=== PATIENT | male | born 1960 | race Caucasian/White ===

== ENCOUNTER 2020-04-03 14:01 | Emergency (ER) | payer MEDICARE, MEDICAID ==
[~2020-04-03] VITALS: Ht 188 cm; Wt 100.0 kg
[2020-04-03] MEDS ORDERED: NORCO, ANEXSIA 5/325MG TABLET (HYDROcodone/ACETAMINOPHEN) PO ONE (14:30)
[2020-04-03] MEDS ORDERED: NORC1TAB7 PO (15:02)
[2020-04-03 15:35] VITALS: BP 145/79
== END 2020-04-03 15:36 | disposition home or self-care (01) ==
LOC: M ED 14:01 → EDBD 14:01 → M ED 15:36
DX: M25.461 Effusion, right knee (principal); W19.XXXA Unspecified fall, initial encounter; X50.1XXA Overexertion from prolonged static or awkward postures, initial encounter; Y92.098 Other place in other non-institutional residence as the place of occurrence of the external cause; J44.9 Chronic obstructive pulmonary disease, unspecified; F17.210 Nicotine dependence, cigarettes, uncomplicated

== ENCOUNTER 2021-01-26 23:35 | Emergency (ER) | payer MEDICARE, MEDICAID ==
[~2021-01-26] VITALS: Ht 182.9 cm; Wt 104.5 kg
[~2021-01-26 23:35] MED LIST: NORC1TAB7 PO
[2021-01-26 23:41] VITALS: BP 146/92
--- NOTE | 2021-01-27 00:44 | REPVR ---
PROCEDURE INFORMATION: Exam: CT Head Without Contrast Exam date and time: 01/27/2021 12:00 AM Age: 60 years old Clinical indication: Injury or trauma; Fall; Concussion/head injury; Additional info: Fall, head laceration, ETOH TECHNIQUE: Imaging protocol: Computed tomography of the head without contrast. Radiation optimization: All CT scans at this facility use at least one of these dose optimization techniques: automated exposure control; mA and/or kV adjustment per patient size (includes targeted exams where dose is matched to clinical indication); or iterative reconstruction. COMPARISON: No relevant prior studies available. FINDINGS: Brain: Unremarkable. No hemorrhage or acute infarction. Unremarkable white matter. No midline shift or mass effect. Cerebral ventricles: No ventriculomegaly. Paranasal sinuses: Visualized sinuses are clear. Mastoid air cells: Mastoid air cells are clear. Bones/joints: Unremarkable. No acute fracture. Soft tissues: Soft tissue swelling in the left temporal scalp. No foreign bodies. IMPRESSION: No acute intracranial abnormality. Electronically signed by: Brandon Velazquez On 01/27/2021 00:44:06 AM
--- NOTE | 2021-01-27 00:52 | REPVR ---
PROCEDURE INFORMATION: Exam: CT Cervical Spine Without Contrast Exam date and time: 01/27/2021 12:00 AM Age: 60 years old Clinical indication: Neck pain; Additional info: Fall, head laceration, ETOH TECHNIQUE: Imaging protocol: Computed tomography images of the cervical spine without contrast. Radiation optimization: All CT scans at this facility use at least one of these dose optimization techniques: automated exposure control; mA and/or kV adjustment per patient size (includes targeted exams where dose is matched to clinical indication); or iterative reconstruction. COMPARISON: No relevant prior studies available. FINDINGS: Bones/joints: No acute fracture. Normal alignment. Discs/Spinal canal/Neural foramina: Advanced discogenic degenerative changes. Advanced facet DJD with multilevel neural foraminal stenoses. No spinal stenosis. Lungs: Lung apices are normal. Pleural spaces: Small right pleural effusion. Soft tissues: Unremarkable. IMPRESSION: 1. No acute fracture. Normal alignment. 2. Advanced degenerative spondylosis. 3. Small right pleural effusion. Electronically signed by: Brandon Velazquez On 01/27/2021 00:52:11 AM
== END 2021-01-27 01:15 | disposition left against medical advice (07) ==
LOC: M ED 23:35
DX: Z53.21 Procedure and treatment not carried out due to patient leaving prior to being seen by health care provider (principal)

== ENCOUNTER 2021-12-01 16:54 | Emergency (ER) | payer MEDICARE, MEDICAID ==
[~2021-12-01] VITALS: Ht 185.4 cm; Wt 126.4 kg
[2021-12-01 17:07] VITALS: BP 134/73
[2021-12-01] MEDS ORDERED: BUDE10.22 (17:16)
[2021-12-01] MEDS ORDERED: SYMB80INH (17:16)
[2021-12-01] MEDS ORDERED: POTA1TAB14 (17:16)
[2021-12-01] MEDS ORDERED: VENTAER (17:16)
[2021-12-01] MEDS ORDERED: QUET50TA4 (17:16)
[2021-12-01] MEDS ORDERED: ELIQ5TAB (17:16)
[2021-12-01] MEDS ORDERED: FURO40TA2 (17:16)
== END 2021-12-01 17:50 | disposition left against medical advice (07) ==
LOC: M ED 16:54 → EDBD 16:54 → M ED 17:50
DX: Z53.21 Procedure and treatment not carried out due to patient leaving prior to being seen by health care provider (principal)

== ENCOUNTER 2022-01-31 22:01 | Inpatient (IN) | payer MEDICARE, MEDICAID ==
[~2022-01-31] VITALS: Ht 185.4 cm; Wt 134.0 kg
[~2022-01-31 22:01] MED LIST changes: +BUDE10.22; +ELIQ5TAB; +FURO40TA2; +POTA1TAB14; +QUET50TA4; +SYMB80INH; +VENTAER
[2022-01-31] MEDS ORDERED: IPRATROPIUM 0.5MG/ALBUTEROL 2.5MG INH SOL UD 3ML (DUONEB) NEB ONE (22:15)
[2022-01-31 22:33] LABS: BASO # 0.1 10^3/uL (0.0-0.2); BASO % 0.9 % (0.0-1.0); EOS % 0.4 % (0.0-3.0); HEMATOCRIT 37.3 % (42.0-52.0); HEMOGLOBIN 12.9 g/dl (13.5-17.5); MEAN CORPUSCULAR HEMOGLOBIN 36.4 pg (27.0-33.0); MEAN CORPUSCULAR HGB CONC 34.6 g/dl (32.0-36.5); MEAN CORPUSCULAR VOLUME 105.4 fl (80.0-96.0); MONO # 0.6 10^3/uL (0.0-0.8); NEUTROPHILS # 6.1 10^3/uL (1.5-8.5); NEUTROPHILS % 74.9 % (36.0-66.0); PLATELET COUNT, AUTOMATED 142 10^3/uL (150-450); RED BLOOD COUNT 3.54 10^6/uL (4.30-6.10); WHITE BLOOD COUNT 8.2 10^3/uL (4.0-10.0)
[2022-01-31 22:46] LABS: INR 1.31; PROTHROMBIN TIME 16.7 SECONDS (12.7-14.5)
[2022-01-31 22:47] LABS: PARTIAL THROMBOPLASTIN TIME 33.7 SECONDS (25.9-37.0)
[2022-01-31 23:06] LABS: ALBUMIN 2.8 GM/DL (3.2-5.2); BILIRUBIN,TOTAL 1.4 MG/DL (0.2-1.0); CALCIUM LEVEL 9.5 MG/DL (8.8-10.2); CREATININE FOR GFR 1.63 MG/DL (0.70-1.30); GLOMERULAR FILTRATION RATE 45.7 (>49); MAGNESIUM LEVEL 1.9 MG/DL (1.8-2.4); POTASSIUM SERUM 4.2 MEQ/L (3.5-5.1); TOTAL PROTEIN 7.2 GM/DL (6.4-8.2)
[2022-01-31] MEDS ORDERED: HumuLIN R (REGULAR) INSULIN (NovoLIN R) **100U/ML** PER UNIT IV ONE (23:30)
[2022-02-01] VITALS (43 sets, daily range): BP systolic 85–143; BP diastolic 47–80
[2022-02-01] MEDS ORDERED: DEXTROSE 50% 50 ML SYRINGE IV PRN (01:15)
[2022-02-01] MEDS ORDERED: GLUCOSE 4GM CHEW TABLET PO PRN ×2 (01:15→13:55)
[2022-02-01] MEDS ORDERED: LORazepam 2 MG TAB PO PRN (01:15)
[2022-02-01] MEDS ORDERED: GLUCAGON INJ 1MG VIAL SC PRN ×2 (01:15→13:55)
[2022-02-01] MEDS ORDERED: LORazepam 2 MG/ML VIAL As Ordered ONE ×3 (02:01→02:12)
[2022-02-01] MEDS ORDERED: LEVALBUTEROL 1.25 MG/0.5 ML CONCENTRATE NEB NEB ONE (02:10)
[2022-02-01] MEDS ORDERED: LORazepam 2 MG/ML VIAL IM STA (02:13)
[2022-02-01] MEDS ORDERED: LORazepam 2 MG/ML VIAL IV STA ×2 (02:13)
[2022-02-01] MEDS ORDERED: levETIRAcetam INJection 1,000 MG in D5W 100 ML IV ONE (02:15)
[2022-02-01] MEDS ORDERED: HumuLIN R (REGULAR) INSULIN (NovoLIN R) **100U/ML** PER UNIT IV STA (02:17)
[2022-02-01] MEDS ORDERED: THIAMINE 200MG 2ML VIAL IV SCH (02:20)
[2022-02-01] MEDS ORDERED: FURO40TA2 PO (02:21)
[2022-02-01] MEDS ORDERED: PANT-23 PO (02:21)
[2022-02-01] MEDS ORDERED: QUET50TA4 PO (02:21)
[2022-02-01] MEDS ORDERED: SYMB80INH INH (02:21)
[2022-02-01] MEDS ORDERED: ELIQ5TAB PO (02:21)
[2022-02-01] MEDS ORDERED: ALBU8.5H INH (02:21)
[2022-02-01 02:23] LABS: VENOUS BASE EXCESS -0.2 (-2.0-2.0); VENOUS PARTIAL PRESSURE CO2 43.2 mmHg (38.0-50.0); VENOUS PARTIAL PRESSURE O2 85.1 mmHg (30.0-50.0); VENOUS PH 7.381 UNITS (7.330-7.430); VENOUS STANDARD HCO3 24.2 MEQ/L; VENOUS TOTAL CO2 26.4 MEQ/L (24.0-28.0)
[2022-02-01] MEDS ORDERED: HOME MED LIST COMPLETE! XX SCH (02:25)
[2022-02-01 02:45] LABS: HEMOGLOBIN A1c 10.4 %
[2022-02-01] MEDS ORDERED: PHENYTOIN INJection 2,000 MG in NS 250 ML IV ONE (03:00)
[2022-02-01 03:07] LABS: CALCIUM LEVEL 10.1 MG/DL (8.8-10.2); CREATININE FOR GFR 1.8 MG/DL (0.70-1.30); GLOMERULAR FILTRATION RATE 40.8 (>49); POTASSIUM SERUM 4.6 MEQ/L (3.5-5.1)
[2022-02-01] MEDS ORDERED: PROPOFOL 1,000 MG/100 ML VIAL As Ordered ONE (03:13)
[2022-02-01] MEDS ORDERED: ETOMIDATE INJ 20MG/10ML VIAL IV ONE (03:20)
[2022-02-01] MEDS ORDERED: ROCURONIUM BROMIDE 50 MG/5 ML VIAL IV ONE (03:20)
[2022-02-01] MEDS ORDERED: NS 1,000 ML IV SCH (03:30)
[2022-02-01] MEDS ORDERED: MIDAZOLAM HCL 100 MG in D5W 80 ML IV SCH (03:30)
[2022-02-01] MEDS ORDERED: REFRIGERATOR IV KEYS XX PRN (03:30)
[2022-02-01] MEDS: propofoL 1,000 MG in IV 1 EA IV SCH ×4 (03:35→20:29)
[2022-02-01] MEDS ORDERED: INSULIN LISPRO (NovoLOG) PER UNIT SC SCH ×2 (04:00→12:00)
[2022-02-01] MEDS: THIAMINE 200MG 2ML VIAL IV SCH ×2 (04:37→08:59)
[2022-02-01 04:57] LABS: VENOUS HCO3 22.8 MEQ/L (23.0-27.0); VENOUS O2 SATURATION 99.2 % (60.0-80.0); VENOUS PARTIAL PRESSURE CO2 31.8 mmHg (38.0-50.0); VENOUS PARTIAL PRESSURE O2 158.5 mmHg (30.0-50.0); VENOUS PH 7.474 UNITS (7.330-7.430); VENOUS STANDARD HCO3 24.6 MEQ/L; VENOUS TOTAL CO2 23.8 MEQ/L (24.0-28.0)
[2022-02-01] MEDS ORDERED: INSULIN IV RATE CHANGE DOCUMENTATION ML/HR XX SCH (05:00)
[2022-02-01] MEDS ORDERED: INSULIN REGULAR IN 0.9 % NACL 100 UNIT in IV 1 EA IV SCH ×4 (05:00→05:25)
[2022-02-01 05:12] LABS: HEMATOCRIT 37.2 % (42.0-52.0); MEAN CORPUSCULAR HEMOGLOBIN 36.1 pg (27.0-33.0); MEAN CORPUSCULAR HGB CONC 34.9 g/dl (32.0-36.5); MEAN CORPUSCULAR VOLUME 103.3 fl (80.0-96.0); PLATELET COUNT, AUTOMATED 131 10^3/uL (150-450); WHITE BLOOD COUNT 8.4 10^3/uL (4.0-10.0)
[2022-02-01 05:32] LABS: ALBUMIN 2.7 GM/DL (3.2-5.2); BILIRUBIN,TOTAL 2.3 MG/DL (0.2-1.0); CALCIUM LEVEL 9.5 MG/DL (8.8-10.2); CREATININE FOR GFR 1.73 MG/DL (0.70-1.30); GLOMERULAR FILTRATION RATE 42.7 (>49); POTASSIUM SERUM 4.4 MEQ/L (3.5-5.1); TOTAL PROTEIN 7.1 GM/DL (6.4-8.2)
[2022-02-01 05:41] LABS: LYMPHOCYTES 4 % (16-44); METAMYELOCYTES 2 % (0-0); MONOCYTES 2 % (0-5); MYELOCYTES 1 % (0-0); NEUTROPHILS 88 % (28-66); PLATELET ESTIMATE NORMAL (NORMAL)
[2022-02-01 05:50] LABS: ABG BASE EXCESS 3.2 (-2.0-2.0); ABG HCO3 28.2 MEQ/L (22.0-26.0); ABG O2 SATURATION 99.6 % (95.0-99.0); ABG PARTIAL PRESSURE CO2 44.4 mmHg (35.0-45.0); ABG PARTIAL PRESSURE O2 207.5 mmHg (75.0-100.0); ABG STANDARD HCO3 27.4 MEQ/L (22.0-26.0); ABG TOTAL CO2 29.6 MEQ/L (23.0-31.0); ABG pH (ARTERIAL) 7.421 UNITS (7.350-7.450)
[2022-02-01] MEDS: INSULIN IV RATE CHANGE DOCUMENTATION ML/HR XX SCH ×4 (06:29→12:38)
[2022-02-01] MEDS: CHLORHEXIDINE GLUCONATE 0.12 % 15ML UDC (PERIDEX ORAL RINSE) MT SCH ×2 (08:59→20:28)
[2022-02-01] MEDS: PANTOPRAZOLE 40MG VIAL IV SCH (08:59)
[2022-02-01] MEDS: MULTIVITAMINS/MINERALS THERAP 1 TAB PO SCH (09:00)
[2022-02-01] MEDS ORDERED: THIAMINE 100 MG TAB PO SCH (09:00)
[2022-02-01] MEDS: LEVETIRACETAM IV SCH ×2 (09:01→20:27)
[2022-02-01] MEDS: MATE ADAPTER IV SCH ×2 (09:01→20:27)
[2022-02-01] MEDS: NS IV SCH ×2 (09:01→20:27)
[2022-02-01] MEDS: FOLIC ACID 1MG TAB PO SCH (09:02)
[2022-02-01 10:26] LABS: CALCIUM LEVEL 9.2 MG/DL (8.8-10.2); CREATININE FOR GFR 1.7 MG/DL (0.70-1.30); GLOMERULAR FILTRATION RATE 43.6 (>49); POTASSIUM SERUM 3.5 MEQ/L (3.5-5.1)
[2022-02-01] MEDS ORDERED: LACTULOSE 20 GM/30 ML SYRUP UD PO PRN (10:45)
[2022-02-01] MEDS: fentaNYL 100 MCG/2 ML INJECTION IV PRN ×3 (11:02→20:44)
[2022-02-01] MEDS: cefTRIAXone SOD 1 GM in D5W MINI-BAG PLUS 50 ML IV SCH (11:03)
[2022-02-01] MEDS ORDERED: HEPARIN SOD (PORCINE) 5000UNITS/ML 1ML VIAL/SYRINGE IV PRN (11:40)
[2022-02-01] MEDS: KCL 10MEQ/100ML SWI (KRUN) 10 MEQ in IV 1 EA IV SCH ×4 (12:42→15:47)
[2022-02-01] MEDS ORDERED: LEVEMIR (INSULIN DETEMIR) 1 UNITS/0.01ML SC SCH (14:00)
[2022-02-01] MEDS ORDERED: levETIRAcetam INJection 500 MG in D5W MINI-BAG PLUS 100 ML IV SCH (15:00)
[2022-02-01] MEDS ORDERED: INSULIN LISPRO (NovoLOG) PER UNIT SC ONE ×2 (16:40→18:05)
[2022-02-01] MEDS: LACTULOSE 20 GM/30 ML SYRUP UD PO SCH ×2 (16:40→22:14)
[2022-02-01] MEDS: INSULIN LISPRO (NovoLOG) PER UNIT SC SCH ×2 (16:48→20:28)
[2022-02-01] MEDS ORDERED: FUROSEMIDE 20MG/2ML VIAL (J1940) IV ONE (16:50)
[2022-02-01 18:11] LABS: SOURCE, BODY FLUID PERITONEAL
[2022-02-01 18:12] LABS: APPEARANCE, BODY FLUID CLEAR (CLEAR); PERITONEAL FL COLOR PALE YELLOW (COLORLESS)
[2022-02-01 18:25] LABS: SOURCE, BODY FLUID ALBUMIN PERITONEAL; SOURCE, BODY FLUID GLUCOSE PERITONEAL; SOURCE, BODY FLUID TOT PROTEIN PERITONEAL; TOTAL PROTEIN, BODY FLUID 1.6 G/DL (NOT ESTABLISHED)
[2022-02-01] MEDS: LACTULOSE 20 GM/30 ML SYRUP UD PO PRN (20:28)
[2022-02-01] MEDS ORDERED: HEPARIN DRIP 25,000 UNITS in IV 1 EA IV SCH (21:00)
[2022-02-01] MEDS: HEPARIN SOD (PORCINE) 5000UNITS/ML 1ML VIAL/SYRINGE SQ SCH (22:14)
[2022-02-02] VITALS (47 sets, daily range): BP systolic 99–154; BP diastolic 51–87; O2SAT 94
[2022-02-02] MEDS: LACTULOSE 20 GM/30 ML SYRUP UD PO PRN ×6 (00:16→11:42)
[2022-02-02] MEDS: propofoL 1,000 MG in IV 1 EA IV SCH ×2 (00:16→03:52)
[2022-02-02] MEDS: INSULIN LISPRO (NovoLOG) PER UNIT SC SCH ×6 (00:20→21:00)
[2022-02-02] MEDS: fentaNYL 100 MCG/2 ML INJECTION IV PRN (04:06)
[2022-02-02] MEDS: HEPARIN SOD (PORCINE) 5000UNITS/ML 1ML VIAL/SYRINGE SQ SCH (05:12)
[2022-02-02 06:06] LABS: ABG BASE EXCESS 2.6 (-2.0-2.0); ABG HCO3 25.6 MEQ/L (22.0-26.0); ABG O2 SATURATION 93.6 % (95.0-99.0); ABG PARTIAL PRESSURE CO2 34.3 mmHg (35.0-45.0); ABG PARTIAL PRESSURE O2 67.1 mmHg (75.0-100.0); ABG STANDARD HCO3 26.6 MEQ/L (22.0-26.0); ABG TOTAL CO2 26.6 MEQ/L (23.0-31.0)
[2022-02-02] MEDS: LACTULOSE 20 GM/30 ML SYRUP UD PO SCH ×3 (06:10→21:12)
[2022-02-02 07:06] LABS: ALBUMIN 2.9 GM/DL (3.2-5.2); BILIRUBIN,TOTAL 1.3 MG/DL (0.2-1.0); CALCIUM LEVEL 9.1 MG/DL (8.8-10.2); CREATININE FOR GFR 1.68 MG/DL (0.70-1.30); GLOMERULAR FILTRATION RATE 44.2 (>49); MAGNESIUM LEVEL 1.9 MG/DL (1.8-2.4); PHOSPHORUS LEVEL 3.8 MG/DL (2.5-4.9); TOTAL PROTEIN 6.8 GM/DL (6.4-8.2)
[2022-02-02 08:10] LABS: BASO % 0.4 % (0.0-1.0); EOS % 0.1 % (0.0-3.0); HEMATOCRIT 36.3 % (42.0-52.0); HEMOGLOBIN 12.7 g/dl (13.5-17.5); LYMPH % 11.7 % (24.0-44.0); MEAN CORPUSCULAR HEMOGLOBIN 36.3 pg (27.0-33.0); MEAN CORPUSCULAR VOLUME 103.7 fl (80.0-96.0); MONO # 0.6 10^3/uL (0.0-0.8); MONO % 7.2 % (2.0-8.0); NEUTROPHILS # 6.7 10^3/uL (1.5-8.5); NEUTROPHILS % 78.6 % (36.0-66.0); PLATELET COUNT, AUTOMATED 153 10^3/uL (150-450); WHITE BLOOD COUNT 8.5 10^3/uL (4.0-10.0)
[2022-02-02] MEDS: NS IV SCH ×2 (08:26→21:12)
[2022-02-02] MEDS: MATE ADAPTER IV SCH ×2 (08:26→21:12)
[2022-02-02] MEDS: PANTOPRAZOLE 40MG VIAL IV SCH (08:26)
[2022-02-02] MEDS: CHLORHEXIDINE GLUCONATE 0.12 % 15ML UDC (PERIDEX ORAL RINSE) MT SCH (08:26)
[2022-02-02] MEDS: LEVETIRACETAM IV SCH ×2 (08:26→21:12)
[2022-02-02] MEDS: MULTIVITAMINS/MINERALS THERAP 1 TAB PO SCH (08:27)
[2022-02-02] MEDS: THIAMINE 200MG 2ML VIAL IV SCH (08:27)
[2022-02-02] MEDS: FOLIC ACID 1MG TAB PO SCH (08:27)
[2022-02-02] MEDS ORDERED: LEVEMIR (INSULIN DETEMIR) 1 UNITS/0.01ML SC SCH ×2 (09:00→21:00)
[2022-02-02] MEDS ORDERED: FUROSEMIDE 100MG/10ML VIAL (J1940) IV ONE (09:30)
[2022-02-02 10:10] LABS: THYROID STIMULATING HORMONE 2.8 uIU/ML (0.358-3.740)
[2022-02-02 10:34] LABS: ABG HCO3 26.4 MEQ/L (22.0-26.0); ABG PARTIAL PRESSURE CO2 36.2 mmHg (35.0-45.0); ABG PARTIAL PRESSURE O2 68.6 mmHg (75.0-100.0); ABG STANDARD HCO3 27.1 MEQ/L (22.0-26.0); ABG TOTAL CO2 27.5 MEQ/L (23.0-31.0)
[2022-02-02] MEDS: cefTRIAXone SOD 1 GM in D5W MINI-BAG PLUS 50 ML IV SCH (10:54)
[2022-02-02] MEDS: APIXABAN 5 MG TAB (ELIQUIS) PO SCH ×2 (11:42→21:13)
[2022-02-02] MEDS: IPRATROPIUM 0.5MG/ALBUTEROL 2.5MG INH SOL UD 3ML (DUONEB) NEB PRN ×2 (17:39→20:37)
[2022-02-02] MEDS: THIAMINE 100 MG TAB PO SCH (21:13)
[2022-02-03] VITALS (8 sets, daily range): BP systolic 115–148; BP diastolic 61–93; O2SAT 93
[2022-02-03] MEDS ORDERED: NITROGLYCERIN 0.3 MG SUBL TAB SL STA (04:35)
[2022-02-03] MEDS ORDERED: NITROGLYCERIN 0.4 MG SUBL TABLET SL STA (05:01)
[2022-02-03] MEDS: LACTULOSE 20 GM/30 ML SYRUP UD PO SCH ×3 (05:23→21:21)
[2022-02-03] MEDS ORDERED: ASPIRIN 300 MG SUPP PR ONE (05:30)
[2022-02-03 05:42] LABS: ABG BASE EXCESS 6.4 (-2.0-2.0); ABG HCO3 29.2 MEQ/L (22.0-26.0); ABG PARTIAL PRESSURE CO2 36.2 mmHg (35.0-45.0); ABG PARTIAL PRESSURE O2 70.2 mmHg (75.0-100.0); ABG STANDARD HCO3 30.2 MEQ/L (22.0-26.0); ABG TOTAL CO2 30.3 MEQ/L (23.0-31.0); ABG pH (ARTERIAL) 7.525 UNITS (7.350-7.450)
[2022-02-03] MEDS: METOPROLOL TART 12.5 MG PER 1/2 TAB PO SCH ×2 (05:44→21:20)
[2022-02-03 05:56] LABS: HEMATOCRIT 44.7 % (42.0-52.0); MEAN CORPUSCULAR HEMOGLOBIN 36.5 pg (27.0-33.0); MEAN CORPUSCULAR HGB CONC 34.9 g/dl (32.0-36.5); MEAN CORPUSCULAR VOLUME 104.7 fl (80.0-96.0); RED BLOOD COUNT 4.27 10^6/uL (4.30-6.10); WHITE BLOOD COUNT 20.1 10^3/uL (4.0-10.0)
[2022-02-03 05:57] LABS: BASO # 0.2 10^3/uL (0.0-0.2); BASO % 0.9 % (0.0-1.0); EOS % 0.1 % (0.0-3.0); HEMOGLOBIN 15.6 g/dl (13.5-17.5); LYMPH # 1.9 10^3/uL (1.5-5.0); LYMPH % 9.3 % (24.0-44.0); MONO # 1.4 10^3/uL (0.0-0.8); MONO % 6.8 % (2.0-8.0); NEUTROPHILS # 15.8 10^3/uL (1.5-8.5); NEUTROPHILS % 78.7 % (36.0-66.0); PLATELET COUNT, AUTOMATED 191 10^3/uL (150-450)
[2022-02-03 06:14] LABS: CK-MB VALUE MASS 1.6 NG/ML (<3.6); MB/CK RELATIVE INDEX 1.04 (< OR =4)
[2022-02-03 07:43] LABS: ALBUMIN 2.8 GM/DL (3.2-5.2); BILIRUBIN,TOTAL 2.3 MG/DL (0.2-1.0); CALCIUM LEVEL 8.8 MG/DL (8.8-10.2); CREATININE FOR GFR 1.37 MG/DL (0.70-1.30); GLOMERULAR FILTRATION RATE 55.9 (>49); PHOSPHORUS LEVEL 3.3 MG/DL (2.5-4.9); POTASSIUM SERUM 3.5 MEQ/L (3.5-5.1); TOTAL PROTEIN 6.7 GM/DL (6.4-8.2)
[2022-02-03] MEDS ORDERED: HEPARIN SOD (PORCINE) 5000UNITS/ML 1ML VIAL/SYRINGE SQ SCH (08:10)
[2022-02-03] MEDS: INSULIN LISPRO (NovoLOG) PER UNIT SC SCH ×4 (08:22→21:22)
[2022-02-03] MEDS ORDERED: INSULIN LISPRO (NovoLOG) PER UNIT SC ONE (08:40)
[2022-02-03] MEDS: TIOTROPIUM INHALER/CAPSULE (SPIRIVA) INH SCH (08:54)
[2022-02-03] MEDS: SYMBICORT 160/4.5MCG INHALER 6GM INH SCH ×2 (08:54→19:12)
[2022-02-03] MEDS: PANTOPRAZOLE 40MG VIAL IV SCH (09:42)
[2022-02-03] MEDS: LEVEMIR (INSULIN DETEMIR) 1 UNITS/0.01ML SC SCH ×2 (09:42→21:42)
[2022-02-03] MEDS: MATE ADAPTER IV SCH ×2 (09:43→21:22)
[2022-02-03] MEDS: ATORVASTATIN 20 MG TAB PO SCH (09:43)
[2022-02-03] MEDS: FOLIC ACID 1MG TAB PO SCH (09:43)
[2022-02-03] MEDS: NS IV SCH ×2 (09:43→21:22)
[2022-02-03] MEDS: APIXABAN 5 MG TAB (ELIQUIS) PO SCH ×2 (09:43→21:20)
[2022-02-03] MEDS: LEVETIRACETAM IV SCH ×2 (09:43→21:22)
[2022-02-03] MEDS: THIAMINE 100 MG TAB PO SCH ×2 (09:44→21:20)
[2022-02-03] MEDS: MULTIVITAMINS/MINERALS THERAP 1 TAB PO SCH (09:44)
[2022-02-03] MEDS: QUEtiapine FUMARATE 50MG TAB PO SCH ×3 (09:45→21:21)
[2022-02-03] MEDS: cefTRIAXone SOD 1 GM in D5W MINI-BAG PLUS 50 ML IV SCH (12:12)
[2022-02-04] VITALS (8 sets, daily range): BP systolic 129–143; BP diastolic 75–86
[2022-02-04] MEDS: LACTULOSE 20 GM/30 ML SYRUP UD PO SCH ×3 (05:16→22:00)
[2022-02-04] MEDS: QUEtiapine FUMARATE 50MG TAB PO SCH ×3 (05:16→20:35)
[2022-02-04 06:42] LABS: BASO # 0.1 10^3/uL (0.0-0.2); BASO % 0.6 % (0.0-1.0); EOS % 0.1 % (0.0-3.0); HEMATOCRIT 43.7 % (42.0-52.0); HEMOGLOBIN 15.4 g/dl (13.5-17.5); LYMPH % 8.5 % (24.0-44.0); MEAN CORPUSCULAR HEMOGLOBIN 36.2 pg (27.0-33.0); MEAN CORPUSCULAR HGB CONC 35.2 g/dl (32.0-36.5); MEAN CORPUSCULAR VOLUME 102.6 fl (80.0-96.0); MONO % 8.1 % (2.0-8.0); NEUTROPHILS # 18.5 10^3/uL (1.5-8.5); NEUTROPHILS % 79.8 % (36.0-66.0); PLATELET COUNT, AUTOMATED 175 10^3/uL (150-450); RED BLOOD COUNT 4.26 10^6/uL (4.30-6.10); WHITE BLOOD COUNT 23.1 10^3/uL (4.0-10.0)
[2022-02-04 07:07] LABS: ALBUMIN 2.5 GM/DL (3.2-5.2); BILIRUBIN,TOTAL 2.3 MG/DL (0.2-1.0); CALCIUM LEVEL 8.3 MG/DL (8.8-10.2); CREATININE FOR GFR 1.41 MG/DL (0.70-1.30); POTASSIUM SERUM 3.7 MEQ/L (3.5-5.1); TOTAL PROTEIN 6.3 GM/DL (6.4-8.2)
[2022-02-04 07:31] LABS: MONO # 1.9 10^3/uL (0.0-0.8)
[2022-02-04] MEDS: TIOTROPIUM INHALER/CAPSULE (SPIRIVA) INH SCH (07:42)
[2022-02-04] MEDS: SYMBICORT 160/4.5MCG INHALER 6GM INH SCH ×2 (07:42→19:27)
[2022-02-04] MEDS: MATE ADAPTER IV SCH ×2 (08:20→20:34)
[2022-02-04] MEDS: NS IV SCH ×2 (08:20→20:34)
[2022-02-04] MEDS: LEVETIRACETAM IV SCH ×2 (08:20→20:34)
[2022-02-04] MEDS: INSULIN LISPRO (NovoLOG) PER UNIT SC SCH ×4 (08:21→20:34)
[2022-02-04] MEDS: PANTOPRAZOLE 40MG VIAL IV SCH (08:21)
[2022-02-04] MEDS: ATORVASTATIN 20 MG TAB PO SCH (08:21)
[2022-02-04] MEDS: LEVEMIR (INSULIN DETEMIR) 1 UNITS/0.01ML SC SCH ×2 (08:21→20:34)
[2022-02-04] MEDS: APIXABAN 5 MG TAB (ELIQUIS) PO SCH (08:22)
[2022-02-04] MEDS: MULTIVITAMINS/MINERALS THERAP 1 TAB PO SCH (08:22)
[2022-02-04] MEDS: FOLIC ACID 1MG TAB PO SCH (08:22)
[2022-02-04] MEDS: METOPROLOL TART 12.5 MG PER 1/2 TAB PO SCH ×2 (08:22→20:35)
[2022-02-04] MEDS: THIAMINE 100 MG TAB PO SCH ×2 (08:23→20:35)
[2022-02-04] MEDS: cefTRIAXone SOD 1 GM in D5W MINI-BAG PLUS 50 ML IV SCH (11:52)
[2022-02-05] VITALS (62 sets, daily range): BP systolic 57–199; BP diastolic 34–137; O2SAT 99
[2022-02-05] MEDS: LORazepam 2 MG TAB PO PRN ×2 (03:09→05:16)
[2022-02-05 05:34] LABS: BASO # 0.1 10^3/uL (0.0-0.2); BASO % 0.5 % (0.0-1.0); EOS % 0.1 % (0.0-3.0); HEMATOCRIT 42.9 % (42.0-52.0); HEMOGLOBIN 15.5 g/dl (13.5-17.5); LYMPH # 1.9 10^3/uL (1.5-5.0); LYMPH % 10.8 % (24.0-44.0); MEAN CORPUSCULAR HEMOGLOBIN 36.6 pg (27.0-33.0); MEAN CORPUSCULAR HGB CONC 36.1 g/dl (32.0-36.5); MEAN CORPUSCULAR VOLUME 101.4 fl (80.0-96.0); NEUTROPHILS # 13.6 10^3/uL (1.5-8.5); NEUTROPHILS % 78.3 % (36.0-66.0); PLATELET COUNT, AUTOMATED 189 10^3/uL (150-450); RED BLOOD COUNT 4.23 10^6/uL (4.30-6.10); WHITE BLOOD COUNT 17.4 10^3/uL (4.0-10.0)
[2022-02-05 05:35] LABS: MONO # 1.6 10^3/uL (0.0-0.8)
[2022-02-05] MEDS ORDERED: PANTOPRAZOLE 40MG VIAL IV ONE (05:50)
[2022-02-05 05:51] LABS: ABG BASE EXCESS 2.5 (-2.0-2.0); ABG HCO3 23.9 MEQ/L (22.0-26.0); ABG O2 SATURATION 98.1 % (95.0-99.0); ABG PARTIAL PRESSURE CO2 28.8 mmHg (35.0-45.0); ABG PARTIAL PRESSURE O2 98.3 mmHg (75.0-100.0); ABG STANDARD HCO3 26.7 MEQ/L (22.0-26.0); ABG TOTAL CO2 24.7 MEQ/L (23.0-31.0); ABG pH (ARTERIAL) 7.536 UNITS (7.350-7.450)
[2022-02-05 05:57] LABS: ALBUMIN 2.4 GM/DL (3.2-5.2); BILIRUBIN,TOTAL 2.5 MG/DL (0.2-1.0); CREATININE FOR GFR 1.6 MG/DL (0.70-1.30); GLOMERULAR FILTRATION RATE 46.7 (>49)
[2022-02-05] MEDS: LACTULOSE 20 GM/30 ML SYRUP UD PO SCH (06:00)
[2022-02-05] MEDS: QUEtiapine FUMARATE 50MG TAB PO SCH (06:00)
[2022-02-05] MEDS ORDERED: LACTULOSE 20 GM/30 ML SYRUP UD PR ONE (06:40)
[2022-02-05] MEDS: SYMBICORT 160/4.5MCG INHALER 6GM INH SCH (07:26)
[2022-02-05] MEDS: PANTOPRAZOLE 40MG VIAL IV SCH (07:43)
[2022-02-05] MEDS ORDERED: FUROSEMIDE 40MG/4ML VIAL (J1940) IV ONE (07:50)
[2022-02-05] MEDS: HEPARIN SOD (PORCINE) 5000UNITS/ML 1ML VIAL/SYRINGE SQ SCH ×3 (07:56→22:19)
[2022-02-05] MEDS: PIPERACILLIN/TAZOBACTAM SOD 3.375 GM in D5W MINI-BAG PLUS 50 ML IV SCH ×3 (07:56→20:15)
[2022-02-05] MEDS: LEVEMIR (INSULIN DETEMIR) 1 UNITS/0.01ML SC SCH ×2 (07:56→20:15)
[2022-02-05] MEDS: LEVETIRACETAM IV SCH (07:57)
[2022-02-05] MEDS: INSULIN LISPRO (NovoLOG) PER UNIT SC SCH ×3 (07:57→18:00)
[2022-02-05] MEDS: MATE ADAPTER IV SCH (07:57)
[2022-02-05] MEDS: NS IV SCH (07:57)
[2022-02-05] MEDS ORDERED: THIAMINE 200MG 2ML VIAL IM SCH (09:00)
[2022-02-05] MEDS ORDERED: VANCOMYCIN HCL 1,000 MG, VIAL MATE ADAPTER 1 EACH in NS 250 ML IV ONE (10:00)
[2022-02-05 12:28] LABS: ABG BASE EXCESS 1.2 (-2.0-2.0); ABG HCO3 20.7 MEQ/L (22.0-26.0); ABG O2 SATURATION 98.5 % (95.0-99.0); ABG PARTIAL PRESSURE O2 112.6 mmHg (75.0-100.0); ABG STANDARD HCO3 25.5 MEQ/L (22.0-26.0); ABG TOTAL CO2 21.4 MEQ/L (23.0-31.0); ABG pH (ARTERIAL) 7.572 UNITS (7.350-7.450)
[2022-02-05] MEDS ORDERED: ROCURONIUM BROMIDE 50 MG/5 ML VIAL As Ordered ONE (15:29)
[2022-02-05] MEDS ORDERED: ETOMIDATE INJ 20MG/10ML VIAL As Ordered ONE (15:29)
[2022-02-05] MEDS ORDERED: NOREPINEPHRINE 8MG IN 500ML DEXTROSE 5% BAG As Ordered ONE (15:43)
[2022-02-05] MEDS: DEXTROSE IV SCH ×2 (15:45→22:19)
[2022-02-05] MEDS: NOREPINEPHRINE IV SCH ×2 (15:45→22:19)
[2022-02-05] MEDS ORDERED: ETOMIDATE INJ 20MG/10ML VIAL IV STA (16:13)
[2022-02-05] MEDS ORDERED: MIDAZOLAM INJ 2MG/2ML VIAL (J2250 PER 1MG) IV PRN (16:15)
[2022-02-05] MEDS ORDERED: MORPHINE 2 MG/ML 1ML VIAL IV PRN (16:15)
[2022-02-05] MEDS ORDERED: ROCURONIUM BROMIDE 50 MG/5 ML VIAL IV SCH (16:15)
[2022-02-05] MEDS ORDERED: VASOPRESSIN INJ 20 UNITS in NS 499 ML IV SCH (16:30)
[2022-02-05 16:35] LABS: ABG HCO3 20.1 MEQ/L (22.0-26.0); ABG O2 SATURATION 99.8 % (95.0-99.0); ABG PARTIAL PRESSURE O2 277.4 mmHg (75.0-100.0); ABG TOTAL CO2 21.5 MEQ/L (23.0-31.0); ABG pH (ARTERIAL) 7.259 UNITS (7.350-7.450)
[2022-02-05] MEDS ORDERED: VANCOMYCIN HCL 1,000 MG, VIAL MATE ADAPTER 1 EACH in NS 250 ML IV SCH (18:00)
[2022-02-05] MEDS ORDERED: CHLORHEXIDINE GLUCONATE 0.12 % 15ML UDC (PERIDEX ORAL RINSE) MT SCH (21:00)
== END 2022-02-05 11:12 | disposition expired | DRG 100 ==
LOC: EDUNIT# 22:01 → EDBD 22:01 → M ED 22:01 → M ED INP 02-01 01:15 → M ICU 02-01 03:55
PROVIDERS: ADMIT Internal Medicine; ATTEND Internal Medicine Pulmonary Disease
PROC: 5A1935Z Respiratory Ventilation, Less than 24 Consecutive Hours (ICD-10-PCS; 2022-02-01)
PROC: 0W9G3ZZ Drainage of Peritoneal Cavity, Percutaneous Approach (ICD-10-PCS; 2022-02-01)
PROC: 0BH17EZ Insertion of Endotracheal Airway into Trachea, Via Natural or Artificial Opening (ICD-10-PCS; principal; 2022-02-05)
PROC: 02HV33Z Insertion of Infusion Device into Superior Vena Cava, Percutaneous Approach (ICD-10-PCS; 2022-02-05)
DX: G40.901 Epilepsy, unspecified, not intractable, with status epilepticus (principal); J96.01 Acute respiratory failure with hypoxia; G93.41 Metabolic encephalopathy; K65.2 Spontaneous bacterial peritonitis; K63.1 Perforation of intestine (nontraumatic); N17.9 Acute kidney failure, unspecified; F10.239 Alcohol dependence with withdrawal, unspecified; K76.6 Portal hypertension; Z68.41 Body mass index [BMI] 40.0-44.9, adult; E72.20 Disorder of urea cycle metabolism, unspecified; E87.2 Acidosis; E87.1 Hypo-osmolality and hyponatremia; R57.9 Shock, unspecified; I48.92 Unspecified atrial flutter; E87.3 Alkalosis; K72.90 Hepatic failure, unspecified without coma; D69.6 Thrombocytopenia, unspecified; Z79.01 Long term (current) use of anticoagulants; Z79.899 Other long term (current) drug therapy; F17.200 Nicotine dependence, unspecified, uncomplicated; F20.9 Schizophrenia, unspecified; R33.9 Retention of urine, unspecified; I25.2 Old myocardial infarction; T42.4X5A Adverse effect of benzodiazepines, initial encounter; K70.31 Alcoholic cirrhosis of liver with ascites; Z66 Do not resuscitate; E11.65 Type 2 diabetes mellitus with hyperglycemia; D72.829 Elevated white blood cell count, unspecified; E88.09 Other disorders of plasma-protein metabolism, not elsewhere classified; J44.9 Chronic obstructive pulmonary disease, unspecified; Z95.0 Presence of cardiac pacemaker; K70.40 Alcoholic hepatic failure without coma; Z20.822 Contact with and (suspected) exposure to COVID-19